=== PATIENT | female | born 1985 | race Caucasian/White ===

== ENCOUNTER → 2020-02-17 09:15 | Outpatient (CLI) | payer OTHER, SELFPAY ==
--- NOTE | ~2020-02-17 | MMUS_ITS ---
EXAMINATION: MM diagnostic jose alejandro LT w shannan, US breast LT complete HISTORY: Lower medial left breast lump and left axillary lump TECHNIQUE: ML, MLO and cc full field and additional spot breast and axillary 3-D tomosynthesis images of left breast an irregular were performed and synthetic 2-D images were generated. CAD analysis was submitted and interpreted. COMPARISON: None BREAST PARENCHYMAL COMPOSITION: The breasts are heterogeneously dense, which may obscure small masses . MAMMOGRAM FINDINGS: A 10 mm rounded soft tissue mass is noted in the left axilla, corresponding to the clinical complaint of left breast lump. Deeper left axillary lymph nodes are noted. There is subtle focal skin thickening at the area of complaint of breast lump in the lower inner left breast. No reproducible suspicious left breast mass is detected. No architectural distortion, malignant calcification, skin thickening or retraction of the left breas t is detected. LEFT BREAST AND AXILLARY ULTRASOUND FINDINGS: At the area of clinical complaint of left axillary lump there is an irregular heterogeneous hypoechoi c solid mass measuring 8.6 x 1.5 x 1.3 cm. There is internal vascularity. There is through transmissi on and posterior enhancement. Ultrasound-guided biopsy is recommended. 12:00 6 cm from nipple: Parallel circumscribed hypoechoic probable multilocular cyst measuring 3.8 x 8 x 6.8 mm, with through transmission posterior enhancement. This appears benign. At the area of complaint of palpable lump at 7:00,, lower inner left breast, there is a parallel circ umscribed approximately 3 x 12 x 6 mm hypoechoic solid lesion within the subcutaneous fat, without in ternal vascularity or suspicious shadowing. This has a benign appearance. IMPRESSION: 1. Irregular hypoechoic suspicious solid lesion with internal vascularity at the left axilla at the a sandra of clinical complaint of lump. 2. Ultrasound-guided biopsy of left axillary lesion is recommended. BI-RADS category 4, suspicious findings. Dr. Curran telephoned the report and ultrasound guided biopsy recommendation for the axillary lump on 04/19/2019 to Edith. Reviewed, dictated and finalized at location [facility] IMPRESSION: 1. Irregular hypoechoic suspicious solid lesion with internal vascularity at th e left axilla at the area of clinical complaint of lump. 2. Ultrasound-guided biopsy of left axillary lesion is recommended. BI-RADS category 4, suspicious findings. Dr. Curran telephoned the report and ultrasound guided biopsy recommendation for the axillary lump on 02/17/2020 to [place].
== END ==
PROVIDERS: Visit Provider Nurse Practitioner Obstetrics & Gynecology
DX: N63.20 Unspecified lump in the left breast, unspecified quadrant (principal); R92.8 Other abnormal and inconclusive findings on diagnostic imaging of breast
CPT/HCPCS: 76641; 77061; 77065; G0279